=== PATIENT | female | born 1965 | race Caucasian/White ===

== ENCOUNTER 2016-11-09 15:24 | Emergency (ER) | payer MEDICARE ==
--- NOTE | 2016-11-09 15:39 | ER Document Report ---
ED Medical Screen (RME) - General Chief Complaint: Bloody Stools Stated Complaint: STOOL PROBLEM Time seen by provider: 15:37 Mode of Arrival: Ambulatory Information source: Patient Notes: 51-year-old female with history of GI bleed 2 years ago they could not find the source has been in [facility] and started passing maroon colored blood with stools are black. No abdominal pain. No Pepto-Bismol. No History of Crohn's disease or colitis. No history of C. difficile. She states she's passed a lot of blood and has some lightheadedness for 3 days. She looks pale. [employer] seenn in the past was Dr. Samuel. TRAVEL OUTSIDE OF THE [place] IN LAST 30 DAYS: No - Related Data Allergies/Adverse Reactions: acetaminophen [From Tylenol] Allergy (Mild, Verified 11/09/16 15:35) Migraine naproxen [Naproxen] Allergy (Verified 11/09/16 15:35) HEARTBURN promethazine HCl [From Phenergan] Allergy (Verified 11/09/16 15:35) Past Medical History - Past Medical History Cardiac Medical History: Reports: Hx Congestive Heart Failure, Hx Hypertension Denies: Hx Coronary Artery Disease, Hx Heart Attack Pulmonary Medical History: Denies: Hx Asthma, Hx Bronchitis, Hx COPD, Hx Pneumonia, Hx Tuberculosis Neurological Medical History: Denies: Hx Cerebrovascular Accident, Hx Seizures Musculoskeltal Medical History: Reports Hx Arthritis - back Psychiatric Medical History: Reports: Hx Bipolar Disorder, Hx Depression Past Surgical History: Reports: Hx Abdominal Surgery - gastric bypass, abdominal hernia, umbilical hernia, Hx Section, Hx Gastric Bypass Surgery, Hx Herniorrhaphy, Hx Vascular Surgery. Denies: Hx Hysterectomy - Immunizations Hx Diphtheria, Pertussis, Tetanus Vaccination: Yes - 2010
[2016-11-09 16:17] LABS: ABSOLUTE BASOPHILS # (AUTO) 0.1 10^3/uL (0.0-0.2); ABSOLUTE EOSINOPHILS # (AUTO) 0.4 10^3/uL (0.0-0.6); ABSOLUTE LYMPHOCYTES (AUTO) 3.7 10^3/uL (0.5-4.7); ABSOLUTE MONOCYTES (AUTO) 0.6 10^3/uL (0.1-1.4); ABSOLUTE NEUT (AUTO) 6.1 10^3/uL (1.7-8.2); BASOPHILS % (AUTO) 1.1 % (0-2); EOSINOPHILS % (AUTO) 3.8 % (0-6); HEMATOCRIT 27.7 % (36.0-47.0); HGB HCT DIFFERENCE -0.7; LYMPHOCYTES % (AUTO) 33.7 % (13-45); MEAN CORPUSCULAR HEMOGLOBIN 30.2 pg (27.0-33.4); MEAN CORPUSCULAR HGB CONC 32.6 g/dL (32.0-36.0); MEAN CORPUSCULAR VOLUME 93 fl (80-97); MONOCYTES % (AUTO) 5.6 % (3-13); RED BLOOD COUNT 2.99 10^6/uL (3.72-5.28); RED CELL DISTRIBUTION WIDTH 14.4 % (11.5-14.0); SEGMENTED NEUTROPHILS % (AUTO) 55.8 % (42-78); WHITE BLOOD COUNT 10.9 10^3/uL (4.0-10.5)
[2016-11-09 16:33] LABS: ALANINE AMINOTRANSFERASE 31 U/L (9-52); ALBUMIN 3.3 g/dL (3.5-5.0); ALKALINE PHOSPHATASE 90 U/L (38-126); ANION GAP 10 (5-19); ASPARTATE AMINO TRANSFERASE 24 U/L (14-36); BILIRUBIN,TOTAL 0.7 mg/dL (0.2-1.3); BLOOD UREA NITROGEN 36 mg/dL (7-20); CALCIUM 8.9 mg/dL (8.4-10.2); CARBON DIOXIDE 22 mmol/L (22-30); CHLORIDE 105 mmol/L (98-107); CREATININE RESULT 1.18 mg/dL (0.52-1.25); GLUCOSE 63 mg/dL (75-110); POTASSIUM 5.5 mmol/L (3.6-5.0); SODIUM 136.6 mmol/L (137-145); TOTAL PROTEIN 6.3 g/dL (6.3-8.2)
[2016-11-09] MEDS ORDERED: PANTOPRAZOLE SODIUM 40 MG VIAL IV ONE (18:40)
[2016-11-09] MEDS ORDERED: PANTOPRAZOLE SODIUM 40 MG VIAL IV PRN (18:41)
[2016-11-09 18:56] LABS: PROTHROMBIN TIME 14.5 SEC (11.4-15.4)
[2016-11-09 18:57] LABS: PARTIAL THROMBOPLASTIN TIME 33.7 SEC (23.5-35.8)
--- NOTE | 2016-11-09 19:22 | EKG REPORT ---
SEVERITY:- OTHERWISE NORMAL ECG - SINUS RHYTHM BORDERLINE LEFT AXIS DEVIATION : Confirmed by: Evette Romo MD 09-Nov-2016 19:21:17
--- NOTE | 2016-11-09 19:39 | ER Document Report ---
ED General - General Chief Complaint: Bloody Stools Stated Complaint: STOOL PROBLEM Time seen by provider: 18:00 Mode of Arrival: Ambulatory Information source: Patient Notes: 51-year-old female with 5 day history of rectal bleeding that began his melena and then after about 2 days turned dark red. She has a prior history of L Schmidt's but has had none since she was incarcerated 7 months ago. She denies nausea, vomiting, hematemesis, chest pain, abdominal pain, or back pain. He reported feeling slightly lightheaded this morning. Reported her symptoms and alf personnel and had a hemoglobin drawn that was 8.8. Review of records indicate that her hemoglobin was 15 in November 2013. She denies any vaginal bleeding or discharge. Physical Exam: General: Alert, appears well. HEENT: Normocephalic. Atraumatic. PERRLA. Extraocular movements intact. Oropharynx clear. Neck: Supple. Non-tender. Respiratory: No respiratory distress. Clear and equal breath sounds bilaterally. Cardiovascular: Regular rate and rhythm. Abdominal: Normal Inspection. Soft, non-tender. No distension. Normal Bowel Sounds. Line normal female external genitalia no blood in vaginal vault. Rectal normal tone stools mixture dark red and melanotic Back: Non-tender. No deformity or step off. Extremities: Moves all four extremities. Upper extremities: Normal inspection. Non-tender. Normal color. Normal ROM. Normal temperature. Lower extremities: Normal inspection. Non-tender. No edema. Normal color. Normal ROM. Normal temperature. Neurological: Speech clear mentation normal Psychological: Normal affect. Normal Mood. Skin: Warm. Dry. Normal color. TRAVEL OUTSIDE OF THE [place] IN LAST 30 DAYS: No - Related Data Allergies/Adverse Reactions: acetaminophen [From Tylenol] Allergy (Mild, Verified 11/09/16 15:35) Migraine naproxen [Naproxen] Allergy (Verified 11/09/16 15:35) HEARTBURN promethazine HCl [From Phenergan] Allergy (Verified 11/09/16 15:35) Past Medical History - General Information source: Patient - Social History Smoking Status: Current Every Day Smoker Chew tobacco use (# tins/day): No Frequency of alcohol use: None Drug Abuse: None Family History: CAD Patient has suicidal ideation: No Patient has homicidal ideation: No - Past Medical History Cardiac Medical History: Reports: Hx Congestive Heart Failure, Hx Hypertension Denies: Hx Coronary Artery Disease, Hx Heart Attack Pulmonary Medical History: Denies: Hx Asthma, Hx Bronchitis, Hx COPD, Hx Pneumonia, Hx Tuberculosis Neurological Medical History: Denies: Hx Cerebrovascular Accident, Hx Seizures Renal/ Medical History: Denies: Hx Peritoneal Dialysis Musculoskeltal Medical History: Reports Hx Arthritis - back Psychiatric Medical History: Reports: Hx Bipolar Disorder, Hx Depression Past Surgical History: Reports: Hx Abdominal Surgery - gastric bypass, abdominal hernia, umbilical hernia, Hx Section, Hx Gastric Bypass Surgery, Hx Herniorrhaphy, Hx Vascular Surgery. Denies: Hx Hysterectomy - Immunizations Hx Diphtheria, Pertussis, Tetanus Vaccination: Yes - 2010 Review of Systems - Review of Systems Constitutional: denies: Chills, Fever EENT: denies: Ear pain, Throat pain Cardiovascular: denies: Chest pain, Syncope Respiratory: denies: Cough, Short of breath Gastrointestinal: Black stools, Rectal bleeding. denies: Abdominal pain, Nausea , Vomiting Genitourinary: denies: Burning, Dysuria Female Genitourinary: denies: Vaginal discharge, Vaginal bleeding Musculoskeletal: denies: Back pain Hematologic/Lymphatic: denies: Swollen glands Neurological/Psychological: denies: Weakness, Numbness Physical Exam - Vital signs Vitals: Temp Pulse Resp BP Pulse Ox 97.5 F 85 18 120/88 H 99 11/09/16 15:33 11/09/16 15:33 11/09/16 15:33 11/09/16 15:33 11/09/16 15:33 Course - Re-evaluation Re-evalutation: 11/09/16 19:45 Patient is evidence for GI believe it is hemodynamically stable. He has been started on IV Protonix. I will not transfuse at this point in her hemoglobin is still 9. I discussed the case with Dr. Vernon of the hospitalist service in [facility] and he has accepted the patient in transfer as [facility] has no GI coverage tonight. Going to hold on IV fluids so that repeat H&H to be done on arrival at [facility] without any dilutional effects area - Vital Signs Vital signs: Temp Pulse Resp BP Pulse Ox 97.5 F 85 18 120/88 H 99 11/09/16 15:33 11/09/16 15:33 11/09/16 15:33 11/09/16 15:33 11/09/16 15:33 - Laboratory Result Diagrams: 11/09/16 15:45 11/09/16 15:45 Laboratory results interpreted by me: 11/09/16 11/09/16 15:45 15:45 WBC 10.9 H RBC 2.99 L Hgb 9.0 L Hct 27.7 L RDW 14.4 H Sodium 136.6 L Potassium 5.5 H BUN 36 H Est GFR ( Amer) 59 L Est GFR (Non-Af Amer) 49 L Glucose 63 L Albumin 3.3 L - EKG Interpretation by Me Additional EKG results interpreted by me: 11/09/16 19:44 EKG reviewed by myself sinus rhythm at 78 no acute changes no significant change 08/21/2013 Discharge - Discharge Clinical Impression: Gastrointestinal hemorrhage Qualifiers: GI bleed type/associated pathology: unspecified gastrointestinal hemorrhage type Qualified Code(s): K92.2 - Gastrointestinal hemorrhage, unspecified Condition: Stable Disposition: [facility]
[2016-11-09 22:13] LABS: APPEARANCE,URINE CLEAR; BILIRUBIN,URINE NEGATIVE (NEGATIVE); GLUCOSE, URINE NEGATIVE (NEGATIVE); KETONES,URINE NEGATIVE (NEGATIVE); LEUKOCYTE ESTERASE,URINE SMALL (NEGATIVE); NITRITE,URINE NEGATIVE (NEGATIVE); PROTEIN,URINE NEGATIVE (NEGATIVE); URINE SPECIFIC GRAVITY 1.016; UROBILINOGEN,URINE NEGATIVE mg/dL (<2.0)
[2016-11-10 02:21] VITALS: BP 104/55
--- NOTE | 2016-11-10 02:22 | ER Document Report ---
Doctor's Note Notes: 11/10/16 02:22 Patient resting comfortably, no complaints at present time, vital signs are stable, EMS in the emergency room to transport patient to tertiary care center for further evaluation and treatment of GI bleed, patient currently stable for transfer
== END 2016-11-10 02:40 | disposition short-term general hospital (02) ==
LOC: ER 15:24
DX: K92.2 Gastrointestinal hemorrhage, unspecified (principal); F17.200 Nicotine dependence, unspecified, uncomplicated; I25.10 Atherosclerotic heart disease of native coronary artery without angina pectoris; I10 Essential (primary) hypertension; Z98.84 Bariatric surgery status; Z88.6 Allergy status to analgesic agent
CPT/HCPCS: 93005; 99285; 96374; 86900; 86901; 36415; 87086; 86850; 85025; 85610; 85730; 82272; 81025; 80053; 81001; 93010; C9113; S0164

== ENCOUNTER → 2016-11-09 | Outpatient (CLI) | payer OTHER ==
[2016-11-09 11:19] LABS: HEMATOCRIT 26.9 % (36.0-47.0); HEMOGLOBIN 8.8 g/dL (12.0-15.5); HGB HCT DIFFERENCE -0.5; MEAN CORPUSCULAR HEMOGLOBIN 30.5 pg (27.0-33.4); MEAN CORPUSCULAR HGB CONC 32.7 g/dL (32.0-36.0); MEAN CORPUSCULAR VOLUME 93 fl (80-97); RED BLOOD COUNT 2.89 10^6/uL (3.72-5.28); RED CELL DISTRIBUTION WIDTH 14.7 % (11.5-14.0); WHITE BLOOD COUNT 8.7 10^3/uL (4.0-10.5)
[2016-11-09 11:34] LABS: ALANINE AMINOTRANSFERASE 22 U/L (9-52); ALKALINE PHOSPHATASE 83 U/L (38-126); ANION GAP 10 (5-19); ASPARTATE AMINO TRANSFERASE 22 U/L (14-36); BILIRUBIN,TOTAL 0.6 mg/dL (0.2-1.3); BLOOD UREA NITROGEN 37 mg/dL (7-20); CALCIUM 8.8 mg/dL (8.4-10.2); CARBON DIOXIDE 21 mmol/L (22-30); CHLORIDE 106 mmol/L (98-107); CREATININE RESULT 1.15 mg/dL (0.52-1.25); GLUCOSE 130 mg/dL (75-110); POTASSIUM 5.6 mmol/L (3.6-5.0); SODIUM 137.2 mmol/L (137-145)
== END ==
LOC: LAB 10:29
PROVIDERS: ATTEND Internal Medicine Pulmonary Disease
DX: R19.5 Other fecal abnormalities (principal)
CPT/HCPCS: 36415; 80053; 85027

== ENCOUNTER 2018-03-07 07:45 | Emergency (ER) | payer MEDICARE, OTHER ==
[2018-03-07 07:54] VITALS: BP 136/79
[2018-03-07 09:29] LABS: ABSOLUTE BASOPHILS # (AUTO) 0.1 10^3/uL (0.0-0.2); ABSOLUTE LYMPHOCYTES (AUTO) 1.2 10^3/uL (0.5-4.7); ABSOLUTE MONOCYTES (AUTO) 0.2 10^3/uL (0.1-1.4); ABSOLUTE NEUT (AUTO) 4.8 10^3/uL (1.7-8.2); EOSINOPHILS % (AUTO) 0.8 % (0-6); HEMATOCRIT 44.5 % (36.0-47.0); HEMOGLOBIN 15.5 g/dL (12.0-15.5); LYMPHOCYTES % (AUTO) 18.7 % (13-45); MEAN CORPUSCULAR HEMOGLOBIN 30.1 pg (27.0-33.4); MEAN CORPUSCULAR HGB CONC 34.8 g/dL (32.0-36.0); MEAN CORPUSCULAR VOLUME 86 fl (80-97); MONOCYTES % (AUTO) 3.6 % (3-13); PLATELET COUNT 200 10^3/uL (150-450); RED BLOOD COUNT 5.15 10^6/uL (3.72-5.28); RED CELL DISTRIBUTION WIDTH 13.5 % (11.5-14.0); SEGMENTED NEUTROPHILS % (AUTO) 75.9 % (42-78); TOTAL CELLS COUNTED % (AUTO) 100 %; WHITE BLOOD COUNT 6.3 10^3/uL (4.0-10.5)
[2018-03-07 09:52] LABS: APPEARANCE,URINE SLIGHTLY-CLOUDY; BILIRUBIN,URINE NEGATIVE (NEGATIVE); GLUCOSE, URINE NEGATIVE (NEGATIVE); KETONES,URINE TRACE mg/dL (NEGATIVE); LEUKOCYTE ESTERASE,URINE NEGATIVE (NEGATIVE); NITRITE,URINE NEGATIVE (NEGATIVE); PROTEIN,URINE NEGATIVE (NEGATIVE)
--- NOTE | 2018-03-07 09:53 | ER Document Report ---
ED General - General Chief Complaint: Abdominal Pain Stated Complaint: STOMACH/BACK PAIN Time Seen by Provider: 03/07/18 08:06 Mode of Arrival: Ambulatory Information source: Patient Notes: 52-year-old female presents with complaints of left lower quadrant abdominal pain that started this morning. Patient denies any fevers or chills denies any nausea vomiting or diarrhea. Patient does note that she has pasty stools and is being evaluated by GI for this, she does note a significant family history of diverticulosis Patient has had multiple abdominal surgeries, still has her ovaries TRAVEL OUTSIDE OF THE [place] IN LAST 30 DAYS: No - HPI Onset: Just prior to arrival Onset/Duration: Sudden Quality of pain: Sharp Severity: Mild Pain Level: 1 Associated symptoms: Other Exacerbated by: Denies Relieved by: Denies Similar symptoms previously: No Recently seen / treated by doctor: No - Related Data Allergies/Adverse Reactions: acetaminophen [From Tylenol] Allergy (Mild, Verified 11/09/16 15:35) Migraine naproxen [Naproxen] Allergy (Verified 11/09/16 15:35) HEARTBURN promethazine HCl [From Phenergan] Allergy (Verified 11/09/16 15:35) Past Medical History - Social History Smoking Status: Never Smoker Cigarette use (# per day): No Chew tobacco use (# tins/day): No Smoking Education Provided: No Frequency of alcohol use: None Drug Abuse: None Family History: CAD Patient has suicidal ideation: No Patient has homicidal ideation: No - Past Medical History Cardiac Medical History: Reports: Hx Congestive Heart Failure, Hx Hypertension Denies: Hx Coronary Artery Disease, Hx Heart Attack Pulmonary Medical History: Denies: Hx Asthma, Hx Bronchitis, Hx COPD, Hx Pneumonia, Hx Tuberculosis Neurological Medical History: Denies: Hx Cerebrovascular Accident, Hx Seizures Renal/ Medical History: Denies: Hx Peritoneal Dialysis Musculoskeltal Medical History: Reports Hx Arthritis - back Psychiatric Medical History: Reports: Hx Bipolar Disorder, Hx Depression Past Surgical History: Reports: Hx Abdominal Surgery - gastric bypass, abdominal hernia, umbilical hernia, Hx Section, Hx Gastric Bypass Surgery, Hx Herniorrhaphy, Hx Vascular Surgery. Denies: Hx Hysterectomy - Immunizations Hx Diphtheria, Pertussis, Tetanus Vaccination: Yes - 2010 Review of Systems - Review of Systems Notes: REVIEW OF SYSTEMS: CONSTITUTIONAL : Denies fever, chills, or sweats. Denies recent illness. EENT: Denies eye, ear, throat, or mouth pain or symptoms. Denies nasal or sinus congestion or discharge. Denies throat, tongue, or mouth swelling or difficulty swallowing. CARDIOVASCULAR: Denies chest pain. Denies palpitations or racing or irregular heart beat. Denies ankle edema. RESPIRATORY: Denies cough, cold, or chest congestion. Denies shortness of breath, difficulty breathing, or wheezing. GASTROINTESTINAL: Admits to left lower quadrant abdominal pain GENITOURINARY: Denies difficulty urinating, painful urination, burning, frequency, blood in urine, or discharge. FEMALE GENITOURINARY: Denies vaginal bleeding, heavy or abnormal periods, irregular periods. Denies vaginal discharge or odor. MUSCULOSKELETAL: Denies back or neck pain or stiffness. Denies joint pain or swelling. SKIN: Denies rash, lesions or sores. HEMATOLOGIC : Denies easy bruising or bleeding. LYMPHATIC: Denies swollen, enlarged glands. NEUROLOGICAL: Denies confusion or altered mental status. Denies passing out or loss of consciousness. Denies dizziness or lightheadedness. Denies headache. Denies weakness or paralysis or loss of use of either side. Denies problems with gait or speech. Denies sensory loss, numbness, or tingling. Denies seizures. PSYCHIATRIC: Denies anxiety or stress. Denies depression, suicidal ideation, or homicidal ideation. ALL OTHER SYSTEMS REVIEWED AND NEGATIVE. PHYSICAL EXAMINATION: GENERAL: Well-appearing, well-nourished and in no acute distress. HEAD: Atraumatic, normocephalic. EYES: Pupils equal round and reactive to light, extraocular movements intact, conjunctiva are normal. ENT: Nares patent, oropharynx clear without exudates. Moist mucous membranes. NECK: Normal range of motion, supple without lymphadenopathy LUNGS: Breath sounds clear to auscultation bilaterally and equal. No wheezes rales or rhonchi. HEART: Regular rate and rhythm without murmurs ABDOMEN: Soft, minimally tender in left lower quadrant no rebound no guarding Female : deferred Musculoskeletal: Normal range of motion, no pitting or edema. No cyanosis. NEUROLOGICAL: Cranial nerves grossly intact. Normal speech, normal gait. Normal sensory, motor exams PSYCH: Normal mood, normal affect. SKIN: Warm, Dry, normal turgor, no rashes or lesions noted. Dictation was performed using Dragon voice recognition software Physical Exam - Vital signs Vitals: Temp Pulse Resp BP Pulse Ox 98.3 F 72 20 136/79 H 96 03/07/18 07:52 03/07/18 07:52 03/07/18 07:52 03/07/18 07:52 03/07/18 07:52 Course - Re-evaluation Re-evalutation: 03/07/18 09:53 Patient's lab work pending, she will be sent for a CT of her abdomen to evaluate the left lower quadrant 03/07/18 16:27 CT abdomen is concerning for a significant mass ultrasound was performed and it does note septation cystic lesion, it is still concerning for a mass, patient will be given follow-up with [employer] oncology, I did speak with her oncologist and they note they would refer themselves since they do not take care of this After performing a Medical Screening Examination, I estimate there is LOW risk for ACUTE APPENDICITIS, BOWEL OBSTRUCTION, ACUTE CHOLECYSTITIS, PERFORATED DIVERTICULITIS, INCARCERATED HERNIA, PANCREATITIS, PELVIC INFLAMMATORY DISEASE, PERFORATED ULCER, ECTOPIC , or TUBO-OVARIAN ABSCESS, thus I consider the discharge disposition reasonable. Also, there is no evidence or peritonitis , sepsis, or toxicity. I have reevaluated this patient multiple times and no significant life threatening changes are noted. The patient and I have discussed the diagnosis and risks, and we agree with discharging home with close follow-up with the understanding that symptoms and presentations can change. We also discussed returning to the Emergency Department immediately if new or worsening symptoms occur. We have discussed the symptoms which are most concerning (e.g., bloody stool, fever, changing or worsening pain, vomiting) that necessitate immediate return. - Vital Signs Vital signs: Temp Pulse Resp BP Pulse Ox 98.3 F 72 20 136/79 H 96 03/07/18 07:52 03/07/18 07:52 03/07/18 07:52 03/07/18 07:52 03/07/18 07:52 - Laboratory Result Diagrams: 03/07/18 09:17 03/07/18 09:17 Laboratory results interpreted by me: 03/07/18 03/07/18 09:17 09:17 Glucose 133 H Total Bilirubin 1.6 H Direct Bilirubin 1.6 H AST 38 H Urine Ketones TRACE H Urine Urobilinogen 4.0 H Urine Ascorbic Acid 40 H - Diagnostic Test Radiology reviewed: Image reviewed - Ultrasound transabdominal with Doppler concerning for large cystic mass, Reports reviewed Discharge - Discharge Clinical Impression: Pelvic mass Condition: Stable Disposition: HOME, SELF-CARE Additional Instructions: You must call [facility] immediately for an appointment [address] [place] [id number] Prescriptions: Oxycodone HCl 5 mg PO Q6 #20 tablet Forms: Return to Work Referrals: RONNIE QUINTANA FNP [Primary Care Provider] - Follow up as needed
[2018-03-07 09:54] LABS: COLOR,URINE YELLOW
[2018-03-07 09:58] LABS: ALANINE AMINOTRANSFERASE 42 U/L (9-52); ALBUMIN 3.8 g/dL (3.5-5.0); ALKALINE PHOSPHATASE 88 U/L (38-126); ANION GAP 10 (5-19); ASPARTATE AMINO TRANSFERASE 38 U/L (14-36); BILIRUBIN,TOTAL 1.6 mg/dL (0.2-1.3); BLOOD UREA NITROGEN 16 mg/dL (7-20); CALCIUM 8.9 mg/dL (8.4-10.2); CARBON DIOXIDE 27 mmol/L (22-30); CHLORIDE 101 mmol/L (98-107); GLUCOSE 133 mg/dL (75-110); LIPASE 122.2 U/L (23-300); POTASSIUM 4.3 mmol/L (3.6-5.0); TOTAL PROTEIN 7.6 g/dL (6.3-8.2)
--- NOTE | 2018-03-07 11:08 | RADIOLOGY REPORT (SQ) ---
EXAM DESCRIPTION: CT ABD/PELVIS WITH IV ONLY COMPLETED DATE/TIME: 03/07/2018 10:26 am REASON FOR STUDY: left lower abd pain COMPARISON: CT abdomen pelvis 12/25/2013 TECHNIQUE: CT scan of the abdomen and pelvis performed using helical scanning technique with dynamic intravenous contrast injection. No oral contrast. Images reviewed with lung, soft tissue, and bone windows. Reconstructed coronal and sagittal MPR images reviewed. Delayed images for evaluation of the urinary system also acquired. All images stored on PACS. All CT scanners at this facility use dose modulation, iterative reconstruction, and/or weight based d osing when appropriate to reduce radiation dose to as low as reasonably achievable (ALARA). [facility]: Dose Right [facility]: CareDose [facility]: Dose Right [facility]: Teradose 4D [facility]: Arrively CONTRAST TYPE AND DOSE: contrast/concentration: Isovue 370.00 mg/ml; Total Contrast Delivered: 100.0 ml; Total Saline Delivered: 70.0 ml RENAL FUNCTION: Creatinine 0.72 RADIATION DOSE: CT Rad equipment meets quality standard of care and radiation dose reduction techniq ues were employed. CTDIvol: 21.1 mGy. DLP: 2307 mGy-cm.. LIMITATIONS: None. FINDINGS: In the midline pelvis, ventral to the uterine fundus, a cystic mass with septations and mu ral nodule is present worrisome for primary ovarian tumor. This measures 12 cm craniocaudad by 17 cm transverse by 11 cm AP, best shown on axial images 61 through 82. Normal size uterus. Ovaries diff icult to discretely identified. No free pelvic fluid. No pelvic adenopathy. This result was discus sed with Dr. Alcocer. LOWER CHEST: No significant findings. No nodules or infiltrates. LIVER: Normal size. No masses. No dilated ducts. SPLEEN: Normal size. No focal lesions. PANCREAS: No masses. No significant calcifications. No adjacent inflammation or peripancreatic fluid collections. Pancreatic duct not dilated. GALLBLADDER: Surgically absent ADRENAL GLANDS: No significant masses or asymmetry. RIGHT KIDNEY AND URETER: No solid masses. No significant calcifications. No hydronephrosis or hyd roureter. LEFT KIDNEY AND URETER: No solid masses. No significant calcifications. No hydronephrosis or hydr oureter. AORTA AND VESSELS: No aneurysm. No dissection. Renal arteries, SMA, celiac without stenosis. IVC pretty ter is present. RETROPERITONEUM: No retroperitoneal adenopathy, hemorrhage or masses. BOWEL AND PERITONEAL CAVITY: Patient is post gastric bypass with Ren loop. No CT evidence of bowel obstruction. No free intraperitoneal air or fluid. No masses or inflammatory changes. No free flui d or peritoneal masses. APPENDIX: Not identified PELVIS: As above. 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 IMPRESSION: 12 x 17 x 11 cm cystic/solid midline pelvic mass worrisome for primary ovarian tumor TECHNICAL DOCUMENTATION: JOB ID: [id number] Quality ID # [id number]: Final reports with documentation of one or more dose reduction techniques (e.g., Au tomated exposure control, adjustment of the mA and/or kV according to patient size, use of iterative reconstruction technique) 2010 [employer]- All Rights Reserved Reading location - IP/workstation name: [email or web address]
[2018-03-07] MEDS ORDERED: HYDROMORPHONE HCL INJ/PF 2 MG/ML AMPULE IV ONE (11:25)
--- NOTE | 2018-03-07 12:19 | RADIOLOGY REPORT (SQ) ---
EXAM DESCRIPTION: U/S NON OB PEL W/DOPPLER COMPLETED DATE/TIME: 03/07/2018 12:04 pm REASON FOR STUDY: LLQ mass LMP 3 years earlier. COMPARISON: CT abdomen pelvis 03/07/2018 TECHNIQUE: Dynamic and static grayscale images acquired of the pelvis via transabdominal approach an d recorded on PACS. Additional selected color Doppler and spectral images recorded. LIMITATIONS: None. FINDINGS: UTERUS: Contour normal. No mass. ENDOMETRIAL STRIPE: No focal or generalized thickening. No masses. CERVIX: 2.3 cm. No nabothian cysts. RIGHT OVARY AND DOPPLER: There is a cystic septated ovarian mass near the midline measuring 10.4 x 17 .2 x 10.8 cm. This contains some thick septations. LEFT OVARY AND DOPPLER: Not seen. FREE FLUID: None noted. OTHER: No other significant finding. MEASUREMENTS: UTERUS: 8.2 x 3.2 x 3.5 cm. ENDOMETRIAL STRIPE: 6 mm. RIGHT OVARY: 10.4 x 17.2 x 10.8 cm. LEFT OVARY: Ovary not seen. IMPRESSION: There is a cystic ovarian mass with thick septations near the midline. This is felt to involve the right ovary but that cannot be said with certainty. 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 TECHNICAL DOCUMENTATION: JOB ID: [id number] [employer]- All Rights Reserved Rev-03/01 Reading location - IP/workstation name: [email or web address]
[2018-03-08 14:49] LABS: BILIRUBIN,DIRECT 0.4 mg/dL (0.0-0.4)
== END 2018-03-07 13:26 | disposition home or self-care (01) ==
LOC: ER 07:45
DX: R19.09 Other intra-abdominal and pelvic swelling, mass and lump (principal); R10.32 Left lower quadrant pain; R19.5 Other fecal abnormalities; I10 Essential (primary) hypertension; Z98.84 Bariatric surgery status; Z87.19 Personal history of other diseases of the digestive system; Z98.890 Other specified postprocedural states; Z88.6 Allergy status to analgesic agent; Z88.8 Allergy status to other drugs, medicaments and biological substances
CPT/HCPCS: 99284; 96374; 36415; 83690; 85025; 81025; 80053; 81001; 76856; 93976; 74177; J1170

== ENCOUNTER 2020-09-29 12:40 | Emergency (ER) | payer MEDICARE ==
[2020-09-29] MEDS ORDERED: PREDNISONE 20 MG TABLET PO ONE (13:15)
[2020-09-29] MEDS ORDERED: IPRATROPIUM/ALBUTEROL 0.5-2.5 MG/3 ML AMPUL NEB ONE (13:15)
--- NOTE | 2020-09-29 13:18 | ER Document Report ---
ED Medical Screen (RME) - General Chief Complaint: Shortness Of Breath Stated Complaint: SHORT OF BREATH,COUGH,DIARRHEA Time Seen by Provider: 09/29/20 13:09 Primary Care Provider: RONNIE QUINTANA FNP [Primary Care Provider] - Follow up as needed TRAVEL OUTSIDE OF THE [place] IN LAST 30 DAYS: No - HPI Notes: 09/29/20 13:16 55-year-old female presents to ED for evaluation of increased shortness of breath. Patient reports that she had increased shortness of breath especially with ambulation. Patient has been on a course of antibiotics, nasal sprays, and steroids as well as an inhaler without improvement. Patient has been taking her Lasix however reports not the full dosage due to difficulties with urination when she takes the whole amount. Patient denies any chest pain however reports of pressure. Patient denies fever chills. Endorses no other complaints at this time.She tested negative for COVID last week. - Related Data Allergies/Adverse Reactions: acetaminophen [From Tylenol] Allergy (Mild, Verified 09/29/20 12:51) Migraine naproxen [Naproxen] Allergy (Verified 09/29/20 12:51) HEARTBURN promethazine HCl [From Phenergan] Allergy (Verified 09/29/20 12:51) Past Medical History - Social History Chew tobacco use (# tins/day): No Frequency of alcohol use: Social Drug Abuse: None - Past Medical History Cardiac Medical History: Reports: Hx Congestive Heart Failure, Hx Hypertension Denies: Hx Coronary Artery Disease, Hx Heart Attack Pulmonary Medical History: Denies: Hx Asthma, Hx Bronchitis, Hx COPD, Hx Pneumonia, Hx Tuberculosis Neurological Medical History: Denies: Hx Cerebrovascular Accident, Hx Seizures Renal/ Medical History: Denies: Hx Peritoneal Dialysis Musculoskeltal Medical History: Reports Hx Arthritis - back Psychiatric Medical History: Reports: Hx Bipolar Disorder, Hx Depression Past Surgical History: Reports: Hx Abdominal Surgery - gastric bypass, abdominal hernia, umbilical hernia, Hx Section, Hx Gastric Bypass Surgery, Hx Herniorrhaphy, Hx Vascular Surgery. Denies: Hx Hysterectomy - Immunizations Hx Diphtheria, Pertussis, Tetanus Vaccination: Yes - 2010 Physical Exam - Vital signs Vitals: Temp Pulse Resp BP Pulse Ox 98.3 F 88 24 H 142/92 H 95 09/29/20 12:54 09/29/20 12:54 09/29/20 12:54 09/29/20 12:54 09/29/20 12:54 General: No acute distress. Alert and oriented x3. Sitting comfortably in a stretcher. Skin: Intact without any jaundice, pallor, or erythema. Warm and dry. HEENT: Normocephalic, atraumatic. Pupils are equal round reactive to light and accommodation. Extraocular movements are intact. TMs without erythema or bulging. Canals are clear. Nares patent without any discharge. Teeth in good condition. Pharynx without erythema, edema, or exudates. No tonsillar enlargement. Uvula is midline. Airway is patent. Neck: Supple with no lymphadenopathy. Full range of motion. Heart: Regular rate and rhythm. S1,S2. No murmurs, rubs, or gallops. Lungs: Crackles to bilateral lower lobes without wheezing or rhonchi. Equal chest expansion. No retractions. Abdomen: Soft, nontender to palpation, nondistended. Positive bowel sounds in all 4 quadrants. No hepatosplenomegaly. No masses. No CVA tenderness bilaterally. Neuro: GCS 15. Moving all extremities without discomfort. Extremities: No calf tenderness or edema. No cyanosis or clubbing. Radial and pedal pulses 2+ bilaterally. Brisk capillary refill. Psych: Mood and affect appropriate. Course - Vital Signs Vital signs: Temp Pulse Resp BP Pulse Ox 98.3 F 88 24 H 142/92 H 95 09/29/20 12:54 09/29/20 12:54 09/29/20 12:54 09/29/20 12:54 09/29/20 12:54 Doctor's Discharge - Discharge Referrals: RONNIE QUINTANA FNP [Primary Care Provider] - Follow up as needed
--- NOTE | 2020-09-29 13:57 | RADIOLOGY REPORT (SQ) ---
EXAM DESCRIPTION: CHEST SINGLE VIEW IMAGES COMPLETED DATE/TIME: 09/29/2020 1:35 pm REASON FOR STUDY: CHF COMPARISON: 2012 NUMBER OF VIEWS: One view. TECHNIQUE: Single frontal radiographic view of the chest acquired. LIMITATIONS: None. FINDINGS: LUNGS AND PLEURA: No opacities, masses or pneumothorax. No pleural effusion. MEDIASTINUM AND HILAR STRUCTURES: No masses or contour abnormality. HEART AND VASCULATURE: Cardiac enlargement. Vascular congestion. BONES: No acute findings. HARDWARE: None in the chest. OTHER: No other significant finding. IMPRESSION: CARDIAC ENLARGEMENT. VASCULAR CONGESTION. TECHNICAL DOCUMENTATION: JOB ID: [id number] 2010 [email or web address]- All Rights Reserved Reading location - IP/workstation name: [email or web address]
[2020-09-29 13:59] LABS: INTERNATIONAL RATION (INR) 1.12; PROTHROMBIN TIME 14.6 SEC (11.4-15.4)
[2020-09-29] MEDS: ALBUTEROL SULFATE 0.083% NEB 2.5 MG/3 ML AMPUL NEB SCH ×2 (14:01→14:29)
[2020-09-29 14:04] LABS: ABSOLUTE EOSINOPHILS # (AUTO) 0.1 10^3/uL (0.0-0.6); ABSOLUTE LYMPHOCYTES (AUTO) 0.9 10^3/uL (0.5-4.7); ABSOLUTE MONOCYTES (AUTO) 0.4 10^3/uL (0.1-1.4); ABSOLUTE NEUT (AUTO) 2.8 10^3/uL (1.7-8.2); BASOPHILS % (AUTO) 0.9 % (0-2); EOSINOPHILS % (AUTO) 2.4 % (0-6); HEMATOCRIT 36.1 % (36.0-47.0); HEMOGLOBIN 12.1 g/dL (12.0-15.5); LYMPHOCYTES % (AUTO) 21.1 % (13-45); MEAN CORPUSCULAR HEMOGLOBIN 30.1 pg (27.0-33.4); MEAN CORPUSCULAR HGB CONC 33.4 g/dL (32.0-36.0); MEAN CORPUSCULAR VOLUME 90 fl (80-97); PLATELET COUNT 130 10^3/uL (150-450); RED BLOOD COUNT 4.01 10^6/uL (3.72-5.28); RED CELL DISTRIBUTION WIDTH 14.2 % (11.5-14.0); SEGMENTED NEUTROPHILS % (AUTO) 66.6 % (42-78); TOTAL CELLS COUNTED % (AUTO) 100 %; WHITE BLOOD COUNT 4.2 10^3/uL (4.0-10.5)
[2020-09-29 14:09] LABS: ALBUMIN 3.6 g/dL (3.5-5.0); ALKALINE PHOSPHATASE 71 U/L (38-126); ANION GAP 6 (5-19); ASPARTATE AMINO TRANSFERASE 43 U/L (14-36); BILIRUBIN,DIRECT 0.3 mg/dL (0.0-0.4); BILIRUBIN,TOTAL 1.4 mg/dL (0.2-1.3); BLOOD UREA NITROGEN 37 mg/dL (7-20); CARBON DIOXIDE 36 mmol/L (22-30); CHLORIDE 96 mmol/L (98-107); CREATINE KINASE 34 U/L (30-135); GLUCOSE 113 mg/dL (75-110); POTASSIUM 4.8 mmol/L (3.6-5.0); TOTAL PROTEIN 7.1 g/dL (6.3-8.2)
[2020-09-29 14:22] LABS: TROPONIN I < 0.012 ng/mL
--- NOTE | 2020-09-29 14:29 | ER Document Report ---
ED General - General Chief Complaint: Shortness Of Breath Stated Complaint: SHORT OF BREATH,COUGH,DIARRHEA Time Seen by Provider: 09/29/20 13:09 Primary Care Provider: RONNIE QUINTANA FNP [Primary Care Provider] - Follow up as needed TRAVEL OUTSIDE OF THE [place] IN LAST 30 DAYS: No - HPI Notes: Patient is a 54-year-old female presents emergency department for evaluation of shortness of breath. It has been ongoing for about a month. Is really primarily with exertion. She states that walking across her trailer makes her short of breath. She did wake up once last night short of breath in the middle of the night, but states she believes that was her anxiety. She has had an intermittently productive cough for about a month, has been dry. She had 2 loose stools in the last 24 hours, but states otherwise that that has not really been an issue. She had a negative Covid test yesterday. She was treated with steroids and Zithromax by her primary care provider, as well as albuterol, this really has not seemed to help. The patient has lost about 20 pounds in the last month secondary to going to the gym. She has had some postnasal drainage but denies any anosmia. - Related Data Allergies/Adverse Reactions: acetaminophen [From Tylenol] Allergy (Mild, Verified 09/29/20 12:51) Migraine naproxen [Naproxen] Allergy (Verified 09/29/20 12:51) HEARTBURN promethazine HCl [From Phenergan] Allergy (Verified 09/29/20 12:51) Home Medications: Adderall, base cream, Coreg, Valium, Ditropan XL, Lasix, Synthroid, lisinopril, nabumetone, paroxetine, potassium chloride, Rexulti, spironolactone, Ultram, valacyclovir, Zyrtec, glucosamine and chondroitin, vitamin E, vitamin B complex, multivitamin, benztropine Past Medical History - General Information source: Patient - Social History Smoking Status: Former Smoker Chew tobacco use (# tins/day): No Frequency of alcohol use: Social Drug Abuse: None Family History: CAD, Malignancy - Past Medical History Cardiac Medical History: Reports: Hx Congestive Heart Failure, Hx Hypertension Denies: Hx Coronary Artery Disease, Hx Heart Attack Pulmonary Medical History: Denies: Hx Asthma, Hx Bronchitis, Hx COPD, Hx Pneumonia, Hx Tuberculosis Neurological Medical History: Denies: Hx Cerebrovascular Accident, Hx Seizures Renal/ Medical History: Denies: Hx Peritoneal Dialysis Musculoskeletal Medical History: Reports Hx Arthritis - back Psychiatric Medical History: Reports: Hx Bipolar Disorder, Hx Depression Past Surgical History: Reports: Hx Abdominal Surgery - gastric bypass, abdominal hernia, umbilical hernia, Hx Section, Hx Gastric Bypass Surgery, Hx Herniorrhaphy, Hx Vascular Surgery. Denies: Hx Hysterectomy - Immunizations Hx Diphtheria, Pertussis, Tetanus Vaccination: Yes - 2010 Review of Systems - Review of Systems Constitutional: See HPI EENT: See HPI Cardiovascular: See HPI Respiratory: See HPI Gastrointestinal: See HPI Genitourinary: No symptoms reported Musculoskeletal: No symptoms reported Skin: No symptoms reported Neurological/Psychological: No symptoms reported Physical Exam - Vital signs Vitals: Temp Pulse Resp BP Pulse Ox 98.3 F 88 24 H 142/92 H 95 09/29/20 12:54 09/29/20 12:54 09/29/20 12:54 09/29/20 12:54 09/29/20 12:54 - Notes Notes: This is a morbidly obese 55-year-old female who appears her stated age, no acute distress. Vital signs reviewed, please refer to chart. Head is normocephalic, atraumatic. Pupils equal round, reactive to light. Neck is supple without men ingismus. Heart sounds are distant. Lungs are clear to auscultation bilaterally. Abdomen is soft, nontender, normoactive bowel sounds throughout. Extremities without cyanosis, clubbing. Posterior calves are nontender. Peripheral pulses are equal. Skin is warm and dry. Patient is awake, alert, neurological exam is nonfocal. Course - Re-evaluation Re-evalutation: 09/29/20 14:29 Patient presents to the emergency department for evaluation of shortness of breath. Is been ongoing for about a month. She is not tachypneic. She is not tachycardic. She is oxygenating well and her lungs are clear. She had a negative Covid test. I will evaluate her with her proBNP and what further labs. Her EKG is unremarkable. Patient is currently stable, we will continue to monitor. 09/29/20 17:32 Patient has remained stable. She remains asymptomatic, although she states that she did go to the bathroom and felt slightly short of breath. At this point I do have a clear etiology of her symptoms. Her cardiac enzymes are negative x2. Her chest x-ray to my eye was not over read, I believe is underpenetrated secondary to body habitus, but she has a high normal proBNP, given her obesity. Her labs are more consistent with her being dry given her elevated BUN to creatinine ratio. I do not have a high suspicion of heart failure. I discussed with the patient that I could not rule out a pulmonary embolus as her girth would prevent me getting an appropriate CT angiogram. She voiced understanding. At that point she told me that she in fact has a Nenita filter, placed at the time of her gastric bypass. Given her lack of other symptoms as well as the filter in place, I do not have a high suspicion for PE at this time. I encouraged her to continue on her weight loss journey, follow-up closely with primary care, and return to the ED with worsening. She voiced understanding and will be discharged. - Vital Signs Vital signs: Temp Pulse Resp BP Pulse Ox 98.3 F 88 24 H 142/92 H 98 09/29/20 12:54 09/29/20 12:54 09/29/20 12:54 09/29/20 12:54 09/29/20 15:06 - Laboratory Results Result Diagrams: 09/29/20 13:25 09/29/20 13:25 Laboratory Results Interpreted: 09/29/20 09/29/20 09/29/20 13:25 13:25 13:25 RDW 14.2 H Plt Count 130 L Chloride 96 L Carbon Dioxide 36 H BUN 37 H Glucose 113 H Total Bilirubin 1.4 H AST 43 H ALT 37 H NT-Pro-B Natriuret Pep 155 H Critical Laboratory Results Reviewed: No Critical Results - Radiology Results Radiology Results Interpreted: 09/29/20 14:28 Chest X-Ray 09/29/20 13:15 IMPRESSION: CARDIAC ENLARGEMENT. VASCULAR CONGESTION. Critical Radiology Results Reviewed: No Critical Results - EKG Interpretation by Me Additional EKG results interpreted by me: 09/29/20 14:29 Sinus mechanism with rate of 60 bpm. Left axis deviation. Normal intervals. No acute ST changes concerning for ischemia or infarction. Discharge - Discharge Clinical Impression: Dyspnea on exertion Condition: Stable Disposition: HOME, SELF-CARE Instructions: Dyspnea, Nonspecific ([facility]) Additional Instructions: No clear cause was found for your shortness of breath today. Please follow-up closely with your primary care provider. Continue your home medications as prescribed. Return to the emergency department if you develop worsening or new concerning symptoms of any sort. Referrals: RONNIE QUINTANA FNP [Primary Care Provider] - Follow up as needed
[2020-09-29 17:41] VITALS: BP 138/89
--- NOTE | 2020-09-29 21:58 | EKG REPORT ---
SEVERITY:- OTHERWISE NORMAL ECG - SINUS RHYTHM LEFT AXIS DEVIATION : Confirmed by: Evette Romo MD 29-Sep-2020 21:57:54
== END 2020-09-29 17:57 | disposition home or self-care (01) ==
LOC: ER 12:40
DX: I11.0 Hypertensive heart disease with heart failure (principal); I50.9 Heart failure, unspecified; F32.9 Major depressive disorder, single episode, unspecified; M47.9 Spondylosis, unspecified; Z79.1 Long term (current) use of non-steroidal anti-inflammatories (NSAID); Z79.899 Other long term (current) drug therapy; Z87.891 Personal history of nicotine dependence; Z98.84 Bariatric surgery status; R06.02 Shortness of breath; Z95.828 Presence of other vascular implants and grafts
CPT/HCPCS: 93005; 94640 ×2; 99285; 36415; 82553; 82550; 85025; 85610; 80053; 84484; 83880; 71045; 93010; A9270 ×2; J7512; J7613

== ENCOUNTER 2020-10-01 12:50 | Emergency (ER) | payer MEDICARE ==
--- NOTE | 2020-10-01 13:06 | ER Document Report ---
ED Medical Screen (RME) - General Chief Complaint: Rectal Bleeding Stated Complaint: RECTAL BLEEDING Time Seen by Provider: 10/01/20 13:01 Primary Care Provider: RONNIE QUINTANA FNP [Primary Care Provider] - Follow up as needed Notes: Patient presents complaining of black stools for the past 2 days. Patient states she has had some diarrhea and did notice some blood in the stool. Patient reports dark urine. Patient complains of a dull ache to her abdomen. Patient reports mild headache pain. Patient reports history of hypertension, CHF and previous gastric bypass surgery. I have greeted and performed a rapid initial assessment of this patient. A comprehensive ED assessment and evaluation of the patient, analysis of test results and completion of the medical decision making process will be conducted by additional ED providers. TRAVEL OUTSIDE OF THE [place] IN LAST 30 DAYS: No - Related Data Allergies/Adverse Reactions: acetaminophen [From Tylenol] Allergy (Mild, Verified 10/01/20 12:53) Migraine naproxen [Naproxen] Allergy (Verified 10/01/20 12:53) HEARTBURN promethazine HCl [From Phenergan] Allergy (Verified 10/01/20 12:53) Past Medical History - Past Medical History Cardiac Medical History: Reports: Hx Congestive Heart Failure, Hx Hypertension Denies: Hx Coronary Artery Disease, Hx Heart Attack Pulmonary Medical History: Denies: Hx Asthma, Hx Bronchitis, Hx COPD, Hx Pneumonia, Hx Tuberculosis Neurological Medical History: Denies: Hx Cerebrovascular Accident, Hx Seizures Renal/ Medical History: Denies: Hx Peritoneal Dialysis Musculoskeltal Medical History: Reports Hx Arthritis - back Psychiatric Medical History: Reports: Hx Bipolar Disorder, Hx Depression Past Surgical History: Reports: Hx Abdominal Surgery - gastric bypass, abdominal hernia, umbilical hernia, Hx Section, Hx Gastric Bypass Surgery, Hx Herniorrhaphy, Hx Vascular Surgery. Denies: Hx Hysterectomy - Immunizations Hx Diphtheria, Pertussis, Tetanus Vaccination: Yes - 2010 Physical Exam - Vital signs Vitals: Temp Pulse Resp BP Pulse Ox 98.1 F 75 20 122/70 97 10/01/20 13:02 10/01/20 13:02 10/01/20 13:02 10/01/20 13:02 10/01/20 13:02 - General General appearance: Appears well, Alert In distress: None Course - Vital Signs Vital signs: Temp Pulse Resp BP Pulse Ox 98.1 F 75 20 122/70 97 10/01/20 13:02 10/01/20 13:02 10/01/20 13:02 10/01/20 13:02 10/01/20 13:02 Doctor's Discharge - Discharge Referrals: RONNIE QUINTANA FNP [Primary Care Provider] - Follow up as needed
[2020-10-01 13:33] LABS: ABSOLUTE EOSINOPHILS # (AUTO) 0.3 10^3/uL (0.0-0.6); ABSOLUTE LYMPHOCYTES (AUTO) 1.3 10^3/uL (0.5-4.7); ABSOLUTE MONOCYTES (AUTO) 0.4 10^3/uL (0.1-1.4); ABSOLUTE NEUT (AUTO) 3.1 10^3/uL (1.7-8.2); BASOPHILS % (AUTO) 0.7 % (0-2); EOSINOPHILS % (AUTO) 5.2 % (0-6); HEMATOCRIT 35.9 % (36.0-47.0); HEMOGLOBIN 11.9 g/dL (12.0-15.5); LYMPHOCYTES % (AUTO) 25.9 % (13-45); MEAN CORPUSCULAR HGB CONC 33.2 g/dL (32.0-36.0); MEAN CORPUSCULAR VOLUME 90 fl (80-97); MONOCYTES % (AUTO) 8.6 % (3-13); PLATELET COUNT 154 10^3/uL (150-450); RED BLOOD COUNT 3.98 10^6/uL (3.72-5.28); SEGMENTED NEUTROPHILS % (AUTO) 59.6 % (42-78); TOTAL CELLS COUNTED % (AUTO) 100 %; WHITE BLOOD COUNT 5.2 10^3/uL (4.0-10.5)
[2020-10-01 13:39] LABS: INTERNATIONAL RATION (INR) 1.12; PROTHROMBIN TIME 14.6 SEC (11.4-15.4)
[2020-10-01 13:40] LABS: PARTIAL THROMBOPLASTIN TIME 30.8 SEC (23.5-35.8)
[2020-10-01 14:04] LABS: ALBUMIN 3.3 g/dL (3.5-5.0); ALKALINE PHOSPHATASE 75 U/L (38-126); ANION GAP 6 (5-19); ASPARTATE AMINO TRANSFERASE 43 U/L (14-36); BILIRUBIN,DIRECT 0.2 mg/dL (0.0-0.4); BILIRUBIN,TOTAL 1.3 mg/dL (0.2-1.3); BLOOD UREA NITROGEN 29 mg/dL (7-20); CALCIUM 8.9 mg/dL (8.4-10.2); CARBON DIOXIDE 33 mmol/L (22-30); CHLORIDE 97 mmol/L (98-107); GLUCOSE 105 mg/dL (75-110); POTASSIUM 4.6 mmol/L (3.6-5.0); TOTAL PROTEIN 6.9 g/dL (6.3-8.2)
--- NOTE | 2020-10-01 15:54 | ER Document Report ---
ED GI Bleed / Rectal Pain - General Chief Complaint: Rectal Bleeding Stated Complaint: RECTAL BLEEDING Time Seen by Provider: 10/01/20 13:01 Primary Care Provider: RONNIE QUINTANA FNP [Primary Care Provider] - Follow up as needed Mode of Arrival: Ambulatory Information source: Patient Notes: This 55-year-old woman presents to the emergency department with a 3-day history of intermittent rectal bleeding. She saw some blood in her stool on Sunday. And a second episode on . Today she had diarrhea with associated bleeding from the rectum. She denies dizziness, chest pain, headache or syncope episodes. She has had a prior history of rectal bleeding about 4 years ago states that she had colonoscopy and upper endoscopy but no specific cause of ble eding was found. Presently she denies no pain or gross bleeding. TRAVEL OUTSIDE OF THE [place] IN LAST 30 DAYS: No - Related Data Allergies/Adverse Reactions: acetaminophen [From Tylenol] Allergy (Mild, Verified 10/01/20 12:53) Migraine naproxen [Naproxen] Allergy (Verified 10/01/20 12:53) HEARTBURN promethazine HCl [From Phenergan] Allergy (Verified 10/01/20 12:53) Past Medical History - Social History Smoking Status: Never Smoker Chew tobacco use (# tins/day): No Frequency of alcohol use: None Drug Abuse: None Family History: Reviewed & Not Pertinent, CAD, Malignancy - Past Medical History Cardiac Medical History: Reports: Hx Congestive Heart Failure, Hx Hypertension Denies: Hx Coronary Artery Disease, Hx Heart Attack Pulmonary Medical History: Denies: Hx Asthma, Hx Bronchitis, Hx COPD, Hx Pneumonia, Hx Tuberculosis Neurological Medical History: Denies: Hx Cerebrovascular Accident, Hx Seizures Renal/ Medical History: Denies: Hx Peritoneal Dialysis Musculoskeletal Medical History: Reports Hx Arthritis - back Psychiatric Medical History: Reports: Hx Bipolar Disorder, Hx Depression Past Surgical History: Reports: Hx Abdominal Surgery - gastric bypass, abdominal hernia, umbilical hernia, Hx Section, Hx Gastric Bypass Surgery, Hx Herniorrhaphy, Hx Vascular Surgery. Denies: Hx Hysterectomy - Immunizations Hx Diphtheria, Pertussis, Tetanus Vaccination: Yes - 2010 Review of Systems - Review of Systems Notes: Constitutional: Negative for fever. HENT: Negative for sore throat. Eyes: Negative for visual changes. Cardiovascular: Negative for chest pain. Respiratory: Negative for shortness of breath. Gastrointestinal: See HPI Genitourinary: Negative for dysuria. Musculoskeletal: Negative for back pain. Skin: Negative for rash. Neurological: Negative for headaches, weakness or numbness. 10 point ROS negative except as marked above and in HPI. Physical Exam - Vital signs Vitals: Temp Pulse Resp BP Pulse Ox 98.1 F 75 20 122/70 97 10/01/20 13:02 10/01/20 13:02 10/01/20 13:02 10/01/20 13:02 10/01/20 13:02 - Notes Notes: PHYSICAL EXAMINATION: Physical Exam: General: Well-nourished well-developed morbidly obese female no acute distress HEENT: NC/AT, pupils equal round and reactive to light, MM moist,nares clear, oropharynx clear, airway patent Neck: supple, no adenopathy, no masses. Good range of motion Lungs: clear, no wheezing, no rales no rhonchi CVS: Regular rate and rhythm no murmur gallop or rub Abdomen: Soft, active, nontender, no masses, no hepatosplenomegaly, no gross blood Ext: No edema, clubbing or cyanosis. Neuro: Alert and responsive, moving all 4 extremities on command, cranial nerves intact, no focal findings Skin: Intact no open lesions, no rash PSYCH: Normal mood, normal affect. Course - Re-evaluation Re-evalutation: 10/01/20 18:40 Patient was hemoglobin/hematocrit 11.9/35.7 at 1314 p.m., repeat H&H noted to be 11.6 and 35.6 with no significant interval change. I encouraged the patient to begin probiotics, to monitor closely for continued or increased blood loss. She is being discharged home to follow-up as an outpatient she understands that if she has continued bleeding or heavy bleeding she should have a repeat blood count done. - Vital Signs Vital signs: Temp Pulse Resp BP Pulse Ox 98.5 F 74 18 124/64 98 10/01/20 18:58 10/01/20 18:58 10/01/20 18:58 10/01/20 18:58 10/01/20 18:58 - Laboratory Results Result Diagrams: 10/01/20 17:05 10/01/20 13:14 Laboratory Results Interpreted: 10/01/20 10/01/20 10/01/20 13:14 13:14 17:05 Hgb 11.9 L 11.6 L Hct 35.9 L 35.7 L RDW 14.2 H Sodium 136.1 L Chloride 97 L Carbon Dioxide 33 H BUN 29 H AST 43 H ALT 38 H Albumin 3.3 L Critical Laboratory Results Reviewed: No Critical Results - Radiology Results Critical Radiology Results Reviewed: No Critical Results Discharge - Discharge Clinical Impression: Rectal bleeding Condition: Good Disposition: HOME, SELF-CARE Instructions: Rectal Bleeding, Unclear Cause ([facility]) Additional Instructions: You were seen in the emergency department today with history of rectal bleeding over the past 3 days intermittently. Your blood count was not significantly decreased and a repeat blood count did not show any significant interval change. You are being discharged home to follow-up as needed. Please begin a probiotic for GI/bowel health. Monitor your stools closely for signs of continued or heavy bleeding. If you are noticing a worsening condition you may return to the emergency department for further evaluation and treatment. If things are stable please follow-up with your primary care doctor for a GI consultation as needed. HOME CARE INSTRUCTIONS & INFORMATION: Thank you for choosing us for your medical needs. We hope you're satisfied with the care you received. After you leave, you must properly care for your problem and, at the same time, observe its progress. Any condition can change. Some illnesses can change rapidly over hours or days. If your condition worsens, return to the Emergency Department or see your physician promptly. ABOUT YOUR X-RAYS AND EKG'S: If you had an EKG or X-rays taken, they have been read by the Emergency Physician. The X-rays and EKG's will also be read by a Radiologist or Network Operations Center Engineer within 24 hours. If discrepancies are noted, you will be notified by telephone. Please be certain the ED has a correct telephone number & address where you can be reached. Also, realize that some fractures or abnormalities do not show up on initial X-rays. If your symptoms continue, see your physician. ABOUT YOUR LABORATORY TEST: If you had laboratory tests, the results have been reviewed by the Emergency Physician. Some test results (for example cultures) may not be available for several days. You will be contacted if any test result shows you need additional treatment. Please be certain the ED has a correct telephone number and address where you can be reached. ABOUT YOUR MEDICATIONS: You will receive instructions on how to take your medicine on the prescription label you receive. Additional information may be provided by the Pharmacy. If you have questions afterwards, call the ED for cla rification or further instructions. Some prescribed medications may cause drowsiness. Do not perform tasks such as driving a car or operating machinery without consulting your Pharmacist. If you feel you need a refill of pain medication, your condition will need re-evaluation. Please do not call for a refill of any medication. ABOUT YOUR SIGNATURE: Signature of this document acknowledges to followin. Understanding that you received emergency treatment and that you may be released before al medical problems are known or treated. Please be certain the ED has a correct phone number & address where you can be reached. 2. Acknowledgement that you will arrange for follow-up care as recommended. 3. Authorization for the Emergency Physician to provide information to your follow-up Physician in order to maximize your care. AT ANY TIME, IF YOUR SYMPTOMS CHANGE SIGNIFICANTLY OR WORSEN OR YOU DEVELOP NEW SYMPTOMS, RETURN TO THE EMERGENCY DEPARTMENT IMMEDIATELY FOR RE-EVALUATION. OUR GOAL IS TO PROVIDE EXCELLENT MEDICAL CARE! WE HOPE THAT WE HAVE MET YOUR EXPECTATIONS DURING YOUR EMERGENCY DEPARTMENT VISIT AND THAT YOU FEEL YOU HAVE RECEIVED EXCELLENT CARE! Referrals: RONNIE QUINTANA FNP [Primary Care Provider] - Follow up as needed
[2020-10-01 17:31] LABS: ABSOLUTE EOSINOPHILS # (AUTO) 0.3 10^3/uL (0.0-0.6); ABSOLUTE LYMPHOCYTES (AUTO) 1.4 10^3/uL (0.5-4.7); ABSOLUTE MONOCYTES (AUTO) 0.4 10^3/uL (0.1-1.4); BASOPHILS % (AUTO) 0.9 % (0-2); HEMATOCRIT 35.7 % (36.0-47.0); HEMOGLOBIN 11.6 g/dL (12.0-15.5); MEAN CORPUSCULAR HEMOGLOBIN 29.4 pg (27.0-33.4); MEAN CORPUSCULAR HGB CONC 32.4 g/dL (32.0-36.0); MEAN CORPUSCULAR VOLUME 91 fl (80-97); MONOCYTES % (AUTO) 7.1 % (3-13); PLATELET COUNT 153 10^3/uL (150-450); RED BLOOD COUNT 3.94 10^6/uL (3.72-5.28); RED CELL DISTRIBUTION WIDTH 14.2 % (11.5-14.0); TOTAL CELLS COUNTED % (AUTO) 100 %; WHITE BLOOD COUNT 5.1 10^3/uL (4.0-10.5)
[2020-10-01 19:03] VITALS: BP 124/64
== END 2020-10-01 18:58 | disposition home or self-care (01) ==
LOC: ER 12:50
DX: K62.5 Hemorrhage of anus and rectum (principal); R19.7 Diarrhea, unspecified; I50.9 Heart failure, unspecified; I11.0 Hypertensive heart disease with heart failure; Z88.6 Allergy status to analgesic agent; Z98.84 Bariatric surgery status
CPT/HCPCS: 36415; 80053; 85025; 85610; 85730; 99283